=== PATIENT | female | born 1990 | race African-American/Black ===

== ENCOUNTER 2016-06-22 14:57 | Inpatient (IN) | payer OTHER ==
--- NOTE | ~2016-06-22 | CO ---
Unit #: [id number] #: [id number] Patient: EDISON WAGONER [id number] [facility]. [address] [address] [id number] I MR#: [id number] NAME: EDISON WAGONER ROOM: 559 Age: 25 Sex: F Admission Date: 06/22/2016 : 1990 Attending Physician: Moriah Borges M.D. Primary Care Physician: Adán Gar M.D. CONSULTATION REPORT REASON FOR CONSULTATION Chest pain. HISTORY OF PRESENT ILLNESS This is a 25-year-old -Iranian female who is known to Dr. Fraga, that has a history of valvular heart disease where she underwent mechanical mitral valve replacement in 2013. In 04/2016 she had a cerebrovascular accident with residual right-sided weakness. She is known to have pulmonary emboli and a history of pericardial effusion in which she underwent pericardial window. She has systemic lupus erythematosus induced congestive heart failure. In 2013 she had a cardiac catheterization according to previous records from [facility] where she was found to have angiographically normal coronary arteries. The patient presents to the emergency room with the complaint of rectal bleeding and chest pain. She said yesterday afternoon she developed an episode of hematochezia with clots and mild abdominal discomfort. She reports substernal chest pain that radiates to the left anterior chest. The patient describes a sharp intermittent, lasting for at least 2 minutes. There was no alleviating or aggravating factors. She was started on Lovenox a week ago because of subtherapeutic INR according to the patient. Her INR on admission was subtherapeutic at 0.09. She says she took no Coumadin yesterday. Troponin is negative. CT angio of the chest showed no evidence of pulmonary embolism. She demonstrates mild anemia with hemoglobin of 8.8. PAST MEDICAL HISTORY 1. 2D echocardiogram on 04/27/2016 shows an ejection fraction equal to 66%. There is mild concentric left ventricular hypertrophy. Mechanical mitral valve prosthesis with mean gradient of 5 mmHg. There was no intraatrial septum shunt with bubble study. 2. Mechanical mitral valve replacement 11/14/[address] Pop at [facility]. 3. Pericardial effusion with history of pericardial window. 4. Lupus induced congestive heart failure. 5. Cardiac catheterization in 2013 shows normal coronaries (according to records from [facility]). 6. Hypertension. 7. Pulmonary emboli. 8. Cerebrovascular accident, no residual right-sided weakness. 9. Lupus. 10. Former smoker. PAST SURGICAL HISTORY Unit #: [id number] #: [id number] Patient: EDISON WAGONER 1. Mechanical mitral valve replacement. 2. Right hip repair fracture. 3. Kidney biopsy. 4. Bone marrow biopsy. 5. Pericardial window. 6. Tonsil and adenoidectomy. SOCIAL HISTORY The patient is disabled. She had a brief period of smoking less than 1/2 pack of cigarettes but quit four years ago. FAMILY HISTORY Negative for coronary artery disease. ALLERGIES Ibuprofen, metoprolol, Benadryl, levofloxacin, and nickel. HOME MEDICATIONS 1. Celexa 20 mg daily. 2. Vitamin D 400 units daily. 3. Folic acid 1 mg t.i.d. 4. Amitriptyline 100 mg q.h.s. 5. Aspirin 81 mg p.o. daily. 6. Lipitor 40 mg q.h.s. 7. Chlorhexidine 0.5 ounces b.i.d. 8. Docusate sodium 100 mg b.i.d. 9. Gabapentin 400 mg t.i.d. 10. Plaquenil 200 mg b.i.d. 11. Hydroxyzine 25 mg b.i.d. 12. Magnesium oxide 400 mg b.i.d. 13. Mycophenolate mofetil 1,000 mg b.i.d. 14. Prednisone 10 mg daily. 15. Sodium bicarbonate 650 mg b.i.d. 16. Topiramate 100 mg b.i.d. 17. Diltiazem 30 mg q.8 hours. 18. Pepcid 40 mg daily. 19. Hydrocodone/acetaminophen 7.5/325 q.12 hours p.r.n. 20. Phenergan 25 mg b.i.d. 21. Zanaflex 4 mg q.8 hours p.r.n. 22. Coumadin 7.5 mg daily. 23. Lovenox 100 mg b.i.d. REVIEW OF SYSTEMS CONSTITUTIONAL: Negative for fever or chills. Reports no weight gain or weight loss. HEENT: No headache, hearing or visual changes. Difficulty with swallowing. Negative for dizziness. CARDIOVASCULAR: Chest pain described in the HPI. Reports occasional palpitations. No paroxysmal nocturnal dyspnea or orthopnea. No syncope or near syncope. RESPIRATORY: Negative for dyspnea, cough, or hemoptysis. GASTROINTESTINAL: Has mild abdominal pain and reports hematochezia. No constipation or melena. EXTREMITIES: Negative for lower extremity edema. PHYSICAL EXAMINATION VITAL SIGNS: Blood pressure 98/52, heart rate 97, temperature 98.7, BMI 27. Unit #: [id number] #: [id number] Patient: EDISON WAGONER GENERAL: This is a 25-year-old, young, well developed, -Iranian female who is in no acute respiratory disease. NEUROLOGIC: She is awake, alert and oriented. This is no focal weakness. NECK: Trachea is midline. No thyromegaly or lymphadenopathy. No jugular venous distention. HEART: S1 and S2. Heart sounds are normal with normal mitral valve click. No rubs. Regular rate and rhythm. LUNGS: Clear without rales, rhonchi or wheezes. ABDOMEN: Soft, nontender, bowel sounds are present. EXTREMITIES: Without leg edema. SKIN: Warm and dry. DIAGNOSTIC STUDIES LABORATORY STUDIES: Glucose 63, BUN 16, creatinine 1.2, sodium 137, potassium 3.2. Beta HCG negative. INR 0.9. ProTime 9.6. Troponin less than 0.05 and less than 0.03. White count 4.2 hemoglobin 8.8, hematocrit 27.4, platelet count is 279. IMAGING STUDIES: Chest x-ray shows no active disease. CT angio of the chest shows no pulmonary embolism. CARDIOVASCULAR STUDIES: Electrocardiogram - normal sinus rhythm with a rate of 99 BPM with QTC prolongation 490 msec. No acute ischemic changes. IMPRESSION 1. Atypical chest pain. 2. Questionable lower GI bleed. 3. Anemia, questionable etiology. 4. Subtherapeutic INR. 5. History of mechanical mitral valve replacement. 6. Hypertension. 7. Normal coronaries per cardiac catheterization in 2013. 8. History of cerebrovascular accident with right-sided weakness. PLANS 1. Cardiology was consulted for evaluation of chest pain. The patient's chest pain is atypical for ischemic heart disease. 2. Troponin is negative. She has minimal risk factors for ischemic heart disease. Coronaries were normal per cath in 2013. 3. INR is subtherapeutic. Last dose of Lovenox was 06/22/2016 at 8:00 a.m. Will start on low dose heparin. 4. The patient is okay to undergo scope at an acceptable risk. 5. Will start on IV antibiotics promotions associate for colonoscopy with ampicillin and gentamicin. 6. Plan was discussed with Dr. Cerna. Once scopes have been completed, will start the patient on Lovenox bridge of Coumadin until INR is therapeutic at 2.5 to 3.5. 7. Followup with Dr. Fraga at discharge. Thank you for allowing us to assist with this patient's care. Dictated by... Montez Lipscomb A.P.R.N. for Jaron Matos/domitila Unit #: [id number] #: [id number] Patient: EDISON WAGONER TD: 06/24/2016 08:21 JOB #: [id number] CC: [facility] Alla Fraga M.D. CONSULTATION REPORT Page 1 of 1 X Montez Lipscomb APRN X CONSULTATION REPORT
--- NOTE | ~2016-06-22 | OR ---
Unit #: [id number] #: [id number] Patient: EDISON WAGONER [id number] [address] [place], [place] [address] [id number] Kary MR#: [id number] NAME: EDISON WAGONER ROOM: 55 Date of Procedure: 06/24/2016 Admission Date: 06/22/2016 Surgeon: Maxi Cerna M.D. : 1990 Attending Physician: Moriah Borges M.D. Primary Care Physician: Adán Gar M.D. OPERATIVE REPORT PROCEDURES PERFORMED Esophagogastroduodenoscopy with biopsy and colonoscopy to cecum. INDICATIONS FOR PROCEDURE The patient presented with lower GI bleeding, also with atypical chest pain, undergoing evaluation with upper endoscopy and colonoscopy. MEDICATIONS Monitored anesthesia. POSTOPERATIVE FINDINGS 1. Mild esophagitis, small hiatal hernia. 2. Patchy gastritis. Biopsy was taken. 3. Normal duodenum and distal duodenum. 4. Colonoscopy completed to cecum. Extensive lavaging needed to be done because of poor prep. No active colitis, polyps, or masses were seen. 5. Internal hemorrhoids, most likely the cause of bleeding. PLAN Continue with current treatment. High-fiber diet and stool softeners. PPI therapy to continue. DESCRIPTION OF PROCEDURE The patient was explained of the procedure, risks, and benefits along with risks and benefits of anesthesia. She was brought to the endoscopy room. Propofol anesthesia was given. Bite block was placed. The scope was passed down the mouth and esophagus, stomach, duodenum, and distal duodenum. Findings as described. Biopsies were taken. Gently, I pulled the scope out of the patient's mouth. She tolerated it well. At this time, she was turned around and repositioned for colonoscopy. Rectal exam was done, which was normal. Colonoscope was lubricated, passed up the rectum, advanced under direct vision all the way to the cecum. Cecum was identified by ileocecal valve and appendiceal orifice. At this point, I started to pull the scope out carefully looking. No polyps, masses, or colitis were seen. Mucosa was normal and healthy. I retroflexed in the rectum, small internal hemorrhoids seen. The scope was gently pulled out. She tolerated it well. Dictated by... Mxai Cerna M.D. Unit #: [id number] #: [id number] Patient: EDISON WAGONER HÉCTOR/evelyne TD: 06/24/2016 19:44 JOB #: [id number] OPERATIVE REPORT Page 1 of 1 X Maxi Cerna MD PROCEDURE OPERATIVE NOTE
--- NOTE | ~2016-06-22 | EKG ---
PATIENT: EDISON WAGONER UNIT #: [id number] Ventricular Rate: 99 BPM Atrial Rate: 99 BPM P-R Interval: 140 ms QRS Duration: 90 ms Q-T Interval: 406 ms QTC Calculation(Bezet): 521 ms P [place]: 56 degrees Calculated R [place]: 7 degrees Calculated T [place]: 17 degrees Diagnosis Line: Normal sinus rhythm Diagnosis Line: Prolonged QT Diagnosis Line: Abnormal ECG Diagnosis Line: When compared with ECG of 22-JUN-2016 15:16, Diagnosis Line: (unconfirmed) Diagnosis Line: Nonspecific T wave abnormality now evident in Diagnosis Line: Anterior leads Diagnosis Line: Confirmed by ROGERIO MCCOLLUM MD ([id number]) on 06/23/2016 Diagnosis Line: 10:40:59 PM INTERPRETING MD: CHUN MEDINA
--- NOTE | ~2016-06-22 | DS ---
Unit #: [id number] #: [id number] Patient: EDISON WAGONER [id number] [address] [address] [id number] I MR#: [id number] NAME: EDISON WAGONER ROOM: 559 Age: 25 Sex: F Admission Date: 06/22/2016 : 1990 Discharge Date: 06/25/2016 Attending Physician: Moriah Borges M.D. Primary Care Physician: Adán Gar M.D. DISCHARGE SUMMARY DISCHARGE DIAGNOSES 1. Chest pain, status post cardiology evaluation, stable. Okay to be discharged. 2. Questionable lower gastrointestinal bleed, status post esophagogastroduodenoscopy and C-scope per GI. Stable to be discharged with stable H and H. Discharge date H and H 9.1 and 28.4. No signs of active bleeding. 3. History of valvular heart disease, was maintained on the IV heparin per cardiology recommendations. Stable to be discharged on the treatment dose of Lovenox along with bridging home dose of Coumadin. PT/INR to be checked per cardiology recommendations on June 29. Patient is to follow up with the primary field marketing lead, Dr. Fraga, as an outpatient. Again, stable from cardiology standpoint to be discharged. 4. History of chronic headache: Continue home meds. 5. History of lupus anticoagulant, on chronic anticoagulation. 6. History of pulmonary embolism, again on chronic anticoagulation. 7. History of depression and anxiety: Continue home medications. Stable. DISCHARGE MEDICATIONS 1. [place] 7.5/325, one tablet p.o. b.i.d. p.r.n. for pain. 2. Prednisone 10 mg daily. 3. Bicarb 650 mg p.o. b.i.d. 4. Mag oxide 400 mg b.i.d. 5. Lovenox 100 mcg subcu b.i.d. until INR is equal or more than 2.5. 6. Coumadin 7.5 mg p.o. daily. 7. Gabapentin 400 mg p.o. t.i.d. 8. Topamax 100 mg b.i.d. 9. Amitriptyline 100 mg at bedtime. 10. Celexa 20 mg q. a.m. 11. Phenergan 25 mg b.i.d. p.r.n. for nausea. 12. Plaquenil 200 mg p.o. b.i.d. 13. Vistaril 25 mg b.i.d. p.r.n. for anxiety. 14. Cardizem 30 mg t.i.d. 15. Colace 100 mg b.i.d. 16. Lipitor 40 mg at bedtime. 17. Chlorhexidine 0.5 b.i.d. 18. Protonix 40 mg daily. 19. CellCept 1000 mg b.i.d. 20. Aspirin 81 mg daily. 21. [place] as above. 22. Zanaflex 4 mg t.i.d. p.r.n. for muscle cramps. 23. Folic acid 1 mg p.o. t.i.d. Unit #: [id number] #: [id number] Patient: EDISON WAGONER 24. Vitamin D 400 units p.o. daily. CONSULTS DURING THIS HOSPITAL STAY 1. Dr. Suggs - Cardiology. 2. Dr. Cerna - GI. LABS AND DIAGNOSTICS AND PROCEDURES DURING THIS HOSPITAL STAY EGD and C-scope per Dr. Cerna showed mild esophagitis with small hiatal hernia, patchy gastritis. Biopsy was taken. Normal duodenum and distal duodenum. Colonoscopy completed to the cecum. Extensive lavaging needed to be done because of the poor prep. No active colitis, polyps, or masses were seen. Internal hemorrhoids, most likely the cause of bleeding. Chest x-ray on admission - no indication of active pulmonary disease. CT angio - no CT evidence of pulmonary embolus, prior median sternotomy. Small polypoid effusions. Adenopathy in the axillary regions bilaterally with the largest lymph node measuring about 2.7 cm x 1.6 cm in the right axilla. HISTORY OF PRESENT HOSPITAL STAY Please refer to H and P done by me for initial presentation on this female. ACTIVE PROBLEMS AND DIAGNOSES Chest pain, status post cardiology evaluation: Chest pain has resolved. Per cardiology, no further testing needed. Stable. Continue medical management as above in discharge meds. Questionable lower gastrointestinal bleed, status post esophagogastroduodenoscopy and C-scope: Report as above. Continue PPI per GI recommendations. Outpatient followup with GI. Axillary lymphadenopathy: Afebrile. White count 4.9. Defer further management to primary care physician. Follow up with the primary care physician in two to three days. History of valvular heart disease: Continue anticoagulation with subcu Lovenox and p.o. Coumadin. History of chronic headache: Will continue home meds. History of lupus anticoagulant: Continue home meds. History of pulmonary embolism, on anticoagulation. Depression/anxiety: Continue home medications. DISPOSITION Going home. Discharge meds as above. Follow up with primary care physician in two to three days. Outpatient followup with cardiology and GI. Unit #: [id number] #: [id number] Patient: EDISON WAGONER Dictated by... Doc Cabrera M.D. OC/df TD: 06/26/2016 06:52 JOB #: [id number] DISCHARGE SUMMARY Page 1 of 1 X Doc Cabrera MD X DISCHARGE SUMMARY
--- NOTE | ~2016-06-22 | EKG ---
PATIENT: EDISON WAGONER UNIT #: [id number] Ventricular Rate: 99 BPM Atrial Rate: 99 BPM P-R Interval: 160 ms QRS Duration: 92 ms Q-T Interval: 382 ms QTC Calculation(Bezet): 490 ms P [place]: 55 degrees Calculated R [place]: 9 degrees Calculated T [place]: 28 degrees Diagnosis Line: Normal sinus rhythm Diagnosis Line: Prolonged QT Diagnosis Line: Abnormal ECG Diagnosis Line: When compared with ECG of 01-FEB-2015 17:17, Diagnosis Line: No significant change was found Diagnosis Line: Confirmed by SHU BARRERA MD ([id number]) on 06/24/2016 Diagnosis Line: 9:47:51 AM INTERPRETING MD: HOLLY MEDINA
--- NOTE | ~2016-06-22 | CR72 ---
[facility] A Service of [facility] & [facility] RADIOLOGY TEXT RESULTS PATIENT: EDISON WAGONER LOCATION: [facility] 559-01 : [birth year] UNIT #: [id number] AGE: [address]: Moriah Borges MD SEX: F ORDER DR: [id number] [facility] [address] [place], [place] [address] [id number] I MR#: [id number] Acc #: [id number] NAME: EDISON WAGONER : 1990 SEX: F STUDY DATE/TIME: 06/22/2016 16:24 [facility]IT: [facility] ROOM: [id number] STUDY DESCRIPTION: CR Chest Single View Portable Attending Physician: Moriah Borges M.D. Ordering Physician: Rosalino Hernandez M.D. Primary Care Physician: Adán Gar M.D. MEDICAL IMAGING REPORT This report is preliminary unless electronic signature is present EXAM Portable chest x-ray, 06/22/2016 HISTORY Chest pain. Lupus. History of PE, mitral valve replacement, CABG, rectal bleeding and chest pain began today. FINDINGS AP radiograph of the chest is presented. Comparison 04/28/2016. Interval removal of left upper extremity approach PICC. Stable postoperative changes median sternotomy and cardiac valve replacement. Heart normal to upper limits of normal in size. Stable. Lung volumes moderate. No indication of acute pulmonary disease, pleural effusion or pneumothorax. No suspicious nodule. Dictated by... Herson Almaraz M.D. THIS IS AN ELECTRONICALLY VERIFIED REPORT Herson Almaraz M.D. at 06/23/2016 3:50 PM VENKAT/josette TD: 06/22/2016 20:41 JOB #: [id number] MEDICAL IMAGING REPORT Page 1 of 1 COPY
--- NOTE | ~2016-06-22 | CO ---
Unit #: [id number] #: [id number] Patient: EDISON WAGONER [id number] [facility]. [place], [place] [address] [id number] I MR#: [id number] NAME: EDISON WAGONER ROOM: 559 Age: 25 Sex: F Admission Date: 06/22/2016 : 1990 Attending Physician: Moriah Borges M.D. Primary Care Physician: Adán Gar M.D. Consultation Date: 06/23/2016 CONSULTATION REPORT REASON FOR CONSULTATION GI bleeding. HISTORY OF PRESENTING ILLNESS Ms. Wagoner is a 25-year-old female. She was admitted yesterday with complaints of blood in the stool. She has also been having chest pain. She has very complicated previous history with lupus anticoagulant on chronic anticoagulation, history of mitral valve prolapse, history of DVT, history of recent stroke. She has not had any similar GI symptoms in the past. She has not had any GI bleeding. Her last scope was over 10 to 15 years ago and she does not remember exactly the findings. She denies any heartburn. She denies any trouble swallowing or nausea or vomiting. She does have mild chronic abdominal pain, which has not changed. PAST MEDICAL HISTORY As described above, also with history of right hip surgery bone marrow mass which was biopsied, mitral valve replacement, and pericardial window surgery. MEDICATIONS At home included Lovenox and Coumadin. ALLERGIES Levaquin, Benadryl, ibuprofen, metoprolol. SOCIAL HISTORY Denies smoking or drinking. No drug abuse. FAMILY HISTORY Grandmother with colon cancer. REVIEW OF SYSTEMS Complete 10-point review of systems was done, which has been detailed above. All the other systems were negative. PHYSICAL EXAMINATION VITAL SIGNS: Stable temperature 98, pulse 93, respirations 23. HEENT: Pupils equal and reactive. Sclerae anicteric. Oral mucosa moist. NECK: No JVD. No lymphadenopathy. CHEST: Few scattered rhonchi. CARDIOVASCULAR: Mechanical valve sound. No murmurs. ABDOMEN: Soft, nontender, and nondistended. Unit #: [id number] #: [id number] Patient: EDISON WAGONER EXTREMITIES: Without clubbing, cyanosis, or edema. NEUROLOGICAL: grossly intact. Detailed examination was deferred. DIAGNOSTIC STUDIES LABORATORY RESULTS: Hemoglobin of 8.8, MCV of 737. Chemistry showed potassium of 3.2. Renal function is good. Liver functions are good. ASSESSMENT 1. The patient with lower gastrointestinal bleeding. 2. Chest pain atypical. Initial cardiac workup is negative. Cardiology consult in progress. 3. History of lupus anticoagulant on anticoagulation with Lovenox and Coumadin. 4. History of deep vein thrombosis. 5. History of mitral valve replacement. 6. History of recent stroke. 7. History of lupus. PLAN 1. After clearing with Cardiology, we will plan on doing a colonoscopy for evaluation of the lower GI bleeding as well as upper endoscopy for the atypical chest pain evaluation before we restart the anticoagulation. We will hold her Lovenox this evening for the procedures tomorrow if that is approved by Cardiology. 2. Given her multiple comorbidities she remains at higher risk than usual for the procedure and related complications particularly bleeding complications. Thank you Dr. Borges for this interesting consult. We will follow along. Dictated by... Jaron Gipson/evelyne TD: 06/23/2016 08:44 JOB #: [id number] CONSULTATION REPORT Page 1 of 1 X Maxi Cerna MD X CONSULTATION REPORT
--- NOTE | ~2016-06-22 | HP ---
Unit #: [id number] #: [id number] Patient: SUZY WAGONER [id number] [address] [address] [id number] I MR#: [id number] NAME: SUZY WAGONER ROOM: 559 Age: 25 Sex: F Admission Date: 06/22/2016 : 1990 Attending Physician: Moriah Borges M.D. Primary Care Physician: Adán Gar M.D. HISTORY AND PHYSICAL ADMISSION DIAGNOSES 1. Chest pain. 2. Lower gastrointestinal bleed. 3. History of valvular heart disease, status post mitral valve replacement on chronic anticoagulation. 4. History of pulmonary embolism. 5. History of depression and anxiety. 6. Chronic pain. 7. History of lupus anticoagulant. 8. Anemia. HISTORY OF PRESENT ILLNESS Ms. Suzy Wagoner is a 25-year-old female well known to our service secondary to prior admissions. She comes to the emergency room with the complaints of left-sided chest pain which she describes as sharp with some radiation toward the neck. No alleviating or aggravating factors. Rates it about 7 out of 10. Denies any shortness of air, denies any headache, dizziness. Denies any fever, chills. Denies any nausea, vomiting, diarrhea, or abdominal pain. The patient also complains of rectal bleeding beginning yesterday with some red blood. Denies any history of hemorrhoids. She is on chronic anticoagulation secondary to mechanical mitral valve and also positive lupus anticoagulant with the history of PE. REVIEW OF SYSTEMS Twelve-point review of systems on this patient is basically negative except as above. PAST MEDICAL HISTORY Significant for: 1. Lupus anticoagulant. 2. History of PE. 3. History of valvular heart disease, status post mitral valve replacement. 4. History of depression anxiety. 5. History of pericardial effusion. 6. History of chronic headaches. PAST SURGICAL HISTORY 1. Significant for mitral valve replacement. 2. Pericardial window. 3. Hip fracture repair. CURRENT MEDICATIONS Unit #: [id number] #: [id number] Patient: SUZY WAGONER 1. IV heparin. 2. Lipitor 40 mg daily. 3. Prednisone 10 mg daily. 4. Vitamin D 400 units daily. 5. Topamax 100 mg b.i.d. 6. Sodium bicarbonate 650 mg b.i.d. 7. CellCept 1000 mg b.i.d. 8. Magnesium oxide 400 b.i.d. 9. Plaquenil 200 mg b.i.d. 10. Celexa 20 mg daily. 11. Cardizem 30 mg t.i.d. 12. Neurontin 400 mg t.i.d. 13. Folic acid 1 mg t.i.d. 14. Phenergan 25 b.i.d. p.r.n. 15. Lortab 7.5 b.i.d. p.r.n. 16. Vistaril 25 mg b.i.d. p.r.n. 17. Amitriptyline 100 mg h.s. 18. Protonix 40 IV daily. ALLERGIES 1. Benadryl. 2. Metoprolol. 3. Ibuprofen. 4. Levaquin. SOCIAL HISTORY Denies any tobacco, alcohol, or illicit drugs. FAMILY HISTORY Unremarkable. PHYSICAL EXAMINATION VITAL SIGNS: BP 108/63, heart rate 93, respirations 16, temperature 97.9. GENERAL: The patient is 25-year-old female in no acute distress. HEENT: Head is atraumatic. Pupils equal, round, reactive to light and accommodation. Extraocular muscles are intact. Oropharynx is clear. NECK: Supple. No mass, no JVD, no bruits. LUNGS: Diminished bilaterally. HEART: S1, S2. No murmurs. ABDOMEN: Soft, nontender, nondistended. Obese. LOWER EXTREMITIES: Without any cyanosis, clubbing, or edema. NEUROLOGIC: Patient grossly intact. No focal deficits. DIAGNOSTIC STUDIES LABORATORY: PT 9.6, INR 0.9, PTT 25.4. Chemistry significant for potassium 3.2 yesterday, blood glucose 63 from yesterday as well. Hemoglobin 8.8, hematocrit 37.4. IMAGING: Chest x-ray negative. CT angio negative for PE. Showed some bilateral axillary adenopathy. ASSESSMENT AND PLAN 1. Chest pain status post cardiology evaluation, continue medical management per Cardiology. Start on ampicillin empirically for colonoscopy and gentamicin also for colonoscopy. 2. Lower gastrointestinal bleed. Monitor hemoglobin and hematocrit status post evaluation per Gastroenterology. Continue IV PPI. Unit #: [id number] #: [id number] Patient: SUZY WAGONER Colonoscopy in the morning. 3. History of valvular heart disease, status post mitral valve replacement with mechanical valve. Currently on heparin. 4. History of pulmonary embolism in the past. 5. History of depression and anxiety. 6. History of lupus anticoagulant. 7. History of chronic headaches. 8. Anemia as above. Monitor hemoglobin and hematocrit q.6 h. Transfuse for hemoglobin less than 7. 9. GI and DVT prophylaxis. Continue IV PPI and IV heparin. Dictated by Jaron Lira/domenico TD: 06/23/2016 21:44 JOB #: [id number] HISTORY AND PHYSICAL Page 1 of 1 X Doc Cabrera MD X HISTORY AND PHYSICAL
--- NOTE | ~2016-06-22 | CT16 ---
[facility] A Service of [facility] & [facility] RADIOLOGY TEXT RESULTS PATIENT: EDISON WAGONER LOCATION: [facility] 559-01 : [birth year] UNIT #: [id number] AGE: [address]: Moriah Borges MD SEX: F ORDER DR: [id number] [facility] [address] [place], [place] [address] [id number] I MR#: [id number] Acc #: [id number] NAME: EDISON WAGONER : 1990 SEX: F STUDY DATE/TIME: 06/22/2016 17:40 UNIT: [facility] ROOM: [facility] STUDY DESCRIPTION: CT Angio Chest for PE Attending Physician: Moriah Borges M.D. Ordering Physician: Rosalino Hernandez M.D. Primary Care Physician: Adán Gar M.D. MEDICAL IMAGING REPORT This report is preliminary unless electronic signature is present EXAM CT scan of the chest with intravenous contrast, 06/22/2016 HISTORY Chest pain beginning today with shortness of breath, history of previous pulmonary embolus, evaluate for pulmonary embolus. TECHNIQUE Spiral CT was performed through the chest following intravenous contrast administration using pulmonary embolus protocol. 3-D reconstructions of the chest were then performed following intravenous contrast administration. This CT exam was performed with one or more of the following radiation dose reduction techniques: Automatic exposure control, adjustment of mA and/or kV according to patient size, and iterative reconstruction. FINDINGS There is no CT evidence for pulmonary embolus. The heart is normal in size status post median sternotomy and valvular replacement. There are small bilateral pleural effusions with minimal bibasilar atelectasis. There is no significant mediastinal adenopathy but there is mild bilateral lymphadenopathy in the axillary regions bilaterally, with the largest node measuring 2.7 cm x 1.6 cm in the right axilla. Clinical correlation is recommended. IMPRESSION 1. No CT evidence for pulmonary embolus. 2. Prior median sternotomy. 3. Small bilateral pleural effusions with minimal bibasilar atelectasis. 4. Adenopathy in the axillary regions bilaterally, with the largest lymph node measuring 2.7 cm x 1.6 cm in the right axilla. Clinical correlation recommended. [facility] A Service of [facility] & [facility] RADIOLOGY TEXT RESULTS PATIENT: EDISON WAGONER LOCATION: [facility] 559-01 : [birth year] UNIT #: [id number] AGE: [address]: Moriah Borges MD SEX: F ORDER DR: Dictated by... Kyle Soriano M.D. THIS IS AN ELECTRONICALLY VERIFIED REPORT Kyle Soriano M.D. at 06/23/2016 9:03 AM KRT/josette TD: 06/22/2016 22:55 JOB #: [id number] MEDICAL IMAGING REPORT Page 1 of 1 COPY
[~2016-06-22 14:57] MED LIST: AMITRYPTYLINE PO; ASPIRIN81 MG PO; AZASAN100 M1 PO; CIPRO PO; COUMADIN10 MG PO; FOLIC ACID1 MG PO; HYDROXYZINE PAM25 MG PO; KLONOPIN0.25 MG/TA PO; LASIX20 MG PO; LOVENOX100 MG/ML INJ; MYCOPHENOLATE500 MG PO; NEURONTIN300 MG PO; PEPCID40 MG PO; PLAQUENIL200 MG PO; PREDNISONE1 MG PO; PREDNISONE10 MG PO; PYRIDIUM PO; TOPAMAX PO
[2016-06-22 16:20] LABS: BASOPHIL% 0.3 % (0-2.5); DIFF IND NO; EOSINOPHIL# 0.1 X10e3 (0-0.7); EOSINOPHIL% 2.3 % (0.0-7.0); HEMATOCRIT 31.5 % (35.0-45.0); HEMOGLOBIN 9.8 gm/dL (12.0-16.0); LYMPHOCYTE% 21.1 % (17.0-45.0); MEAN CELL VOLUME 73.7 FL (83-96); MEAN CORPUSCULAR HEMOGLOBIN 22.9 PG (28-34); MEAN CORPUSCULAR HGB CONC 31.1 g/dL (30-36); MEAN PLATELET VOLUME 8.4 FL (6.5-11.5); MONOCYTE# 0.1 X10e3 (0-1.0); MONOCYTE% 2.3 % (3.0-12.0); NEUTROPHIL# 3.3 X10e3 (1.5-7.1); PLATELET COUNT 314 X10e3 (140-420); RED BLOOD COUNT 4.27 X10e (3.90-5.30); RED CELL DISTRIBUTION WIDTH 17.1 % (11.0-15.5); WHITE BLOOD COUNT 4.5 X10e3 (4.0-10.5)
[2016-06-22 16:38] LABS: POC - CKMB <1.0 ng/mL (0.0-7.9); POC - TROPONIN <0.05 ng/mL (<=0.05)
[2016-06-22 16:41] LABS: INR 0.9; PARTIAL THROMBOPLASTIN TIME 25.4 SECONDS (23.5-31.3); PROTHROMBIN TIME (PATIENT) 9.6 SECONDS (9.6-11.5)
[2016-06-22 16:52] LABS: ALBUMIN SERUM 3.7 g/dL (3.5-5.0); ALKALINE PHOSPHATASE 62 U/L (32-92); ALT (SGPT) 14 U/L (10-40); AST (SGOT) 21 U/L (10-42); BILIRUBIN,TOTAL 0.3 mg/dL (0.2-2.0); BLOOD UREA NITROGEN 16 mg/dL (9-23); BUN/CREATININE RATIO 13.33; CALCIUM SERUM 8.5 mg/dL (8.4-10.2); CARBON DIOXIDE 20 mmol/L (22-31); CHLORIDE 108 mmol/L (100-111); CREATININE SERUM 1.2 mg/dL (0.6-1.4); GLOM FILT RATE Estimated 72.2 mL/min (>60); GLUCOSE FASTING 63 mg/dL (70-110); POTASSIUM 3.2 mmol/L (3.5-5.1); PROTEIN TOTAL SERUM 8.4 g/dL (6.0-8.3); SODIUM 137 mmol/L (135-145)
[2016-06-22 16:56] LABS: BILIRUBIN, DIRECT <0.1 mg/dL (0.0-0.2); BILIRUBIN,INDIRECT 0.2 mg/dL (0.0-0.9)
[2016-06-22] MEDS ORDERED: ATORVASTATIN CA80 MG PO (18:15)
[2016-06-22] MEDS ORDERED: CELEXA20 M1 PO (18:16)
[2016-06-22] MEDS ORDERED: ASPIRIN81 M2 PO (18:16)
[2016-06-22] MEDS ORDERED: TIZANIDINE HCL2 M1 PO (18:18)
[2016-06-22] MEDS ORDERED: GABAPENTIN800 MG PO (18:18)
[2016-06-22] MEDS ORDERED: SOD BICARBONATE PO (18:19)
[2016-06-22] MEDS ORDERED: PLAQUENIL200 MG PO ×2 (18:20→23:43)
[2016-06-22] MEDS ORDERED: VITAMIN D400 UNI2 PO (18:35)
[2016-06-22] MEDS ORDERED: MYCOPHENOLATE500 MG PO (18:35)
[2016-06-22] MEDS ORDERED: MAGOX 400400 MG PO (18:36)
[2016-06-22] MEDS ORDERED: CARDIZEM30 M2 PO (18:36)
[2016-06-22] MEDS ORDERED: FOLIC ACID1 MG PO (18:37)
[2016-06-22] MEDS ORDERED: HYDROXYZINE HCL25 M1 PO ×2 (18:38→23:43)
[2016-06-22] MEDS ORDERED: PEPCID40 MG PO ×2 (18:38→23:48)
[2016-06-22] MEDS ORDERED: COUMADIN PO (18:39)
[2016-06-22] MEDS ORDERED: TOPIRAMATE100 MG PO ×2 (18:40→23:46)
[2016-06-22] MEDS ORDERED: AMITRIPTYLINE100 MG PO (18:40)
[2016-06-22] MEDS ORDERED: PREDNISONE10 MG PO ×2 (18:41→23:45)
[2016-06-22] MEDS ORDERED: LIPITOR40 MG PO (23:40)
[2016-06-22] MEDS ORDERED: ASPIRIN EC81 M1 PO (23:40)
[2016-06-22] MEDS ORDERED: CHLORHEXIDINE FL1 ML PO (23:41)
[2016-06-22] MEDS ORDERED: DOK100 M1 PO (23:42)
[2016-06-22] MEDS ORDERED: GABAPENTIN400 M2 PO (23:42)
[2016-06-22] MEDS ORDERED: HYDROXYZINE HCL25 M1 (23:43)
[2016-06-22] MEDS ORDERED: MAG-OX 400400 MG PO (23:44)
[2016-06-22] MEDS ORDERED: MYCOPHENOLATE500 M1 PO (23:45)
[2016-06-22] MEDS ORDERED: ANTACID650 MG PO (23:46)
[2016-06-22] MEDS ORDERED: CARDIZEM30 MG PO (23:48)
[2016-06-22 23:50] LABS: CK TOTAL 42 IU/L (26-140)
[2016-06-22] MEDS ORDERED: NORCO 7.5-3251 EACH PO (23:50)
[2016-06-22] MEDS ORDERED: PHENERGAN25 M1 PO (23:51)
[2016-06-22] MEDS ORDERED: ZANAFLEX4 M1 PO (23:52)
[2016-06-23] MEDS ORDERED: COUMADIN7.5 MG PO (01:06)
[2016-06-23] MEDS ORDERED: LOVENOX100 MG/1 M SUBQ (01:07)
[2016-06-23 05:26] LABS: BASOPHIL% 0.2 % (0-2.5); EOSINOPHIL# 0.1 X10e3 (0-0.7); EOSINOPHIL% 1.8 % (0.0-7.0); HEMATOCRIT 27.4 % (35.0-45.0); HEMOGLOBIN 8.8 gm/dL (12.0-16.0); LYMPHOCYTE# 0.7 X10e3 (1.0-3.5); LYMPHOCYTE% 17.3 % (17.0-45.0); MEAN CELL VOLUME 72.8 FL (83-96); MEAN CORPUSCULAR HEMOGLOBIN 23.3 PG (28-34); MEAN CORPUSCULAR HGB CONC 32.1 g/dL (30-36); MEAN PLATELET VOLUME 8.5 FL (6.5-11.5); MONOCYTE# 0.1 X10e3 (0-1.0); MONOCYTE% 2.9 % (3.0-12.0); NEUTROPHIL# 3.3 X10e3 (1.5-7.1); NEUTROPHIL% 77.8 % (40-75); PLATELET COUNT 279 X10e3 (140-420); RED BLOOD COUNT 3.76 X10e (3.90-5.30); RED CELL DISTRIBUTION WIDTH 16.7 % (11.0-15.5); WHITE BLOOD COUNT 4.2 X10e3 (4.0-10.5)
[2016-06-23 05:29] LABS: DIFF IND NO
[2016-06-23 10:40] LABS: FOLATE (FOLIC ACID) >23.6 ng/mL (>5.8)
[2016-06-23 18:57] LABS: HEMATOCRIT 32.9 % (35.0-45.0); HEMOGLOBIN 9.7 gm/dL (12.0-16.0)
[2016-06-23 23:38] LABS: HEMATOCRIT 32.4 % (35.0-45.0)
[2016-06-24 07:59] LABS: HEMATOCRIT 28.4 % (35.0-45.0); MEAN CELL VOLUME 72.6 FL (83-96); MEAN CORPUSCULAR HEMOGLOBIN 22.9 PG (28-34); MEAN CORPUSCULAR HGB CONC 31.5 g/dL (30-36); MEAN PLATELET VOLUME 8.7 FL (6.5-11.5); RED BLOOD COUNT 3.92 X10e (3.90-5.30); RED CELL DISTRIBUTION WIDTH 16.8 % (11.0-15.5); WHITE BLOOD COUNT 2.6 X10e3 (4.0-10.5)
[2016-06-24 08:11] LABS: INR 0.9; PROTHROMBIN TIME (PATIENT) 9.8 SECONDS (9.6-11.5)
[2016-06-24 08:39] LABS: ALBUMIN SERUM 3.3 g/dL (3.5-5.0); BILIRUBIN,TOTAL 0.3 mg/dL (0.2-2.0); BUN/CREATININE RATIO 7.27; CALCIUM SERUM 8.6 mg/dL (8.4-10.2); CREATININE SERUM 1.1 mg/dL (0.6-1.4); GLOM FILT RATE Estimated 80.3 mL/min (>60); PROTEIN TOTAL SERUM 7.1 g/dL (6.0-8.3)
[2016-06-24 19:20] LABS: INR 0.9; PARTIAL THROMBOPLASTIN TIME 25.4 SECONDS (23.5-31.3); PROTHROMBIN TIME (PATIENT) 9.6 SECONDS (9.6-11.5)
[2016-06-25 03:44] LABS: HEMATOCRIT 28.4 % (35.0-45.0); HEMOGLOBIN 9.1 gm/dL (12.0-16.0); MEAN CELL VOLUME 72.6 FL (83-96); MEAN CORPUSCULAR HEMOGLOBIN 23.2 PG (28-34); MEAN PLATELET VOLUME 8.3 FL (6.5-11.5); RED BLOOD COUNT 3.91 X10e (3.90-5.30); RED CELL DISTRIBUTION WIDTH 16.9 % (11.0-15.5)
[2016-06-25 03:48] LABS: WHITE BLOOD COUNT 4.9 X10e3 (4.0-10.5)
[2016-06-25 04:07] LABS: ALBUMIN SERUM 3.2 g/dL (3.5-5.0); BILIRUBIN,TOTAL 0.4 mg/dL (0.2-2.0); CALCIUM SERUM 8.3 mg/dL (8.4-10.2); CREATININE SERUM 1.2 mg/dL (0.6-1.4); GLOM FILT RATE Estimated 72.2 mL/min (>60); POTASSIUM 4.7 mmol/L (3.5-5.1); PROTEIN TOTAL SERUM 7.1 g/dL (6.0-8.3)
[2016-06-25 09:11] LABS: INR 0.9; PARTIAL THROMBOPLASTIN TIME 33.6 SECONDS (23.5-31.3); PROTHROMBIN TIME (PATIENT) 9.6 SECONDS (9.6-11.5)
[2016-06-25] MEDS ORDERED: PROTONIX PO (20:55)
== END 2016-06-25 21:49 | disposition home or self-care (01) | DRG 394 ==
LOC: CED 14:57 → C5B 18:30 → CEDOF 18:30 → C5B 19:10 → CED 19:10 → CEDOF 19:10 → C5B 21:29
PROVIDERS: Emergency Medicine; Hospitalist; Internal Medicine; Internal Medicine Cardiovascular Disease; Physician Assistant Medical
PROC: B32TYZZ Computerized Tomography (CT Scan) of Left Pulmonary Artery using Other Contrast (ICD-10-PCS; principal; 2016-06-22)
PROC: B32SYZZ Computerized Tomography (CT Scan) of Right Pulmonary Artery using Other Contrast (ICD-10-PCS; 2016-06-22)
PROC: 0DB68ZX Excision of Stomach, Via Natural or Artificial Opening Endoscopic, Diagnostic (ICD-10-PCS; 2016-06-24 13:45)
PROC: 0DJD8ZZ Inspection of Lower Intestinal Tract, Via Natural or Artificial Opening Endoscopic (ICD-10-PCS; 2016-06-24 13:45)
DX: K64.8 Other hemorrhoids (principal); D68.62 Lupus anticoagulant syndrome; I69.951 Hemiplegia and hemiparesis following unspecified cerebrovascular disease affecting right dominant side; R07.9 Chest pain, unspecified; Z95.2 Presence of prosthetic heart valve; Z79.01 Long term (current) use of anticoagulants; Z86.711 Personal history of pulmonary embolism; F32.9 Major depressive disorder, single episode, unspecified; F41.9 Anxiety disorder, unspecified; D64.9 Anemia, unspecified; G89.29 Other chronic pain; Z88.1 Allergy status to other antibiotic agents; Z87.891 Personal history of nicotine dependence; L93.0 Discoid lupus erythematosus; K20.9 Esophagitis, unspecified; K44.9 Diaphragmatic hernia without obstruction or gangrene; K29.70 Gastritis, unspecified, without bleeding
CPT/HCPCS: 36415; 71010; 71275; 80048; 80053; 80076; 82550; 82553; 82607; 82728; 82746; 83540; 84484; 84703; 85014; 85018; 85025; 85027; 85610; 85730; 86850; 86900; 86901; 88305; 88312; 93005; 99285; C9113; J0290; J1580; J1644; J2250; J2270; J2405; J7517; Q9967

== ENCOUNTER 2016-07-12 20:48 | Emergency (ER) | payer OTHER ==
--- NOTE | ~2016-07-12 | CT16 ---
[facility] A Service [facility] RADIOLOGY TEXT RESULTS PATIENT: EDISON WAGONER LOCATION: [facility] : [birth year] UNIT #: [id number] AGE: [address]: Sol Melton MD SEX: F ORDER DR: [id number] [facility] [address] [place], [place] [address] [id number] E MR#: [id number] Acc #: [id number] NAME: EDISON WAGONER : 1990 SEX: F STUDY DATE/TIME: 07/13/2016 0:54 UNIT: [facility] ROOM: STUDY DESCRIPTION: CT Angio Chest for PE Attending Physician: Sol Melton M.D. Ordering Physician: Sol Melton M.D. Primary Care Physician: Adán Gar M.D. MEDICAL IMAGING REPORT This report is preliminary unless electronic signature is present EXAM CTA chest PE protocol INDICATIONS Midsternal chest pain since yesterday. PROCEDURE Contrast-enhanced CTA of the chest attention on opacification of the pulmonary arteries. Coronal 3-D MIP sagittal reformatted images reconstructed and submitted. The CT exam was performed with one or more of the following radiation dose reduction techniques: automatic exposure control, adjustment of mA and/or kV according to patient size, and iterative reconstruction. COMPARISON: 06/22/2016 FINDINGS No evidence for pulmonary embolus. No evidence for acute aortic injury. No adenopathy. Stable pleural-based opacity in the lateral left lower lobe. There is a new 1.3 cm nodule in the left upper lobe. Cardiomegaly. No aggressive appearing bone lesion. No acute findings in the included upper abdomen. IMPRESSION 1. No evidence for pulmonary embolus. 2. There is a new 1.3 cm nodule in the left upper lobe since the 06/22/2016 study suggesting that this is an infectious or inflammatory nodule. Recommend attention on short-interval followup. 3. Stable pleural thickening or pleural-based opacity posterolateral left lung base. 4. Cardiomegaly. [facility] A Service of [facility] & [facility] RADIOLOGY TEXT RESULTS PATIENT: EDISON WAGONER LOCATION: [facility] : [birth year] UNIT #: [id number] AGE: [address]: Sol Melton MD SEX: F ORDER DR: Dictated by... Butch Durán M.D. THIS IS AN ELECTRONICALLY VERIFIED REPORT Butch Durán M.D. at 07/14/2016 9:56 PM EED/becca TD: 07/13/2016 10:31 JOB #: [id number] MEDICAL IMAGING REPORT Page 1 of 1 COPY
--- NOTE | ~2016-07-12 | EKG ---
PATIENT: EDISON AWGONER UNIT #: [id number] Ventricular Rate: 95 BPM Atrial Rate: 95 BPM P-R Interval: 144 ms QRS Duration: 90 ms Q-T Interval: 372 ms QTC Calculation(Bezet): 467 ms P [place]: 72 degrees Calculated R [place]: 32 degrees Calculated T [place]: 45 degrees Diagnosis Line: Suspect unspecified pacemaker failure Diagnosis Line: Normal sinus rhythm Diagnosis Line: Normal ECG Diagnosis Line: No previous ECGs available Diagnosis Line: Confirmed by NOAH TERRELL MD ([id number]) on Diagnosis Line: 07/14/2016 3:17:18 PM INTERPRETING MD: XANDER MEDINA
--- NOTE | ~2016-07-12 | CR72 ---
[facility] A Service of [facility] & [facility] RADIOLOGY TEXT RESULTS PATIENT: EDISON WAGONER LOCATION: [facility] : [birth year] UNIT #: [id number] AGE: [address]: Sol Melton MD SEX: F ORDER DR: [id number] [facility] [address] [place], [place] [address] [id number] E MR#: [id number] Acc #: [id number] NAME: EDISON WAGONER : 1990 SEX: F STUDY DATE/TIME: 07/12/2016 22:17 UNIT: [facility] ROOM: STUDY DESCRIPTION: CR Chest Single View Portable Attending Physician: Sol Melton M.D. Ordering Physician: Sol Melton M.D. Primary Care Physician: Adán Gar M.D. MEDICAL IMAGING REPORT This report is preliminary unless electronic signature is present EXAM Portable chest 07/12/2016 HISTORY Chest pain beginning this morning. Benign essential hypertension. FINDINGS There is mild cardiac enlargement status post median sternotomy and valvular replacement. The lungs are clear. There are no pleural effusions. IMPRESSION Mild cardiac enlargement. No active pulmonary disease. Dictated by... Kyle Soriano M.D. THIS IS AN ELECTRONICALLY VERIFIED REPORT Kyle Soriano M.D. at 07/13/2016 2:14 PM JAMES/becca TD: 07/13/2016 08:58 JOB #: [id number] MEDICAL IMAGING REPORT Page 1 of 1 COPY
[~2016-07-12 20:48] MED LIST changes: +AMITRIPTYLINE100 MG PO; +ANTACID650 MG PO; +ASPIRIN EC81 M1 PO; +ASPIRIN81 M2 PO; +ATORVASTATIN CA80 MG PO; +CARDIZEM30 M2 PO; +CARDIZEM30 MG PO; +CELEXA20 M1 PO; +CHLORHEXIDINE FL1 ML PO; +COUMADIN PO; +COUMADIN7.5 MG PO; +DOK100 M1 PO; +GABAPENTIN400 M2 PO; +GABAPENTIN800 MG PO; +HYDROXYZINE HCL25 M1; +HYDROXYZINE HCL25 M1 PO; +LIPITOR40 MG PO; +LOVENOX100 MG/1 M SUBQ; +MAG-OX 400400 MG PO; +MAGOX 400400 MG PO; +MYCOPHENOLATE500 M1 PO; +NORCO 7.5-3251 EACH PO; +PHENERGAN25 M1 PO; +PROTONIX PO; +SOD BICARBONATE PO; +TIZANIDINE HCL2 M1 PO; +TOPIRAMATE100 MG PO; +VITAMIN D400 UNI2 PO; +ZANAFLEX4 M1 PO
[2016-07-12 23:35] LABS: URINE SOURCE CLEAN CATCH
[2016-07-12 23:40] LABS: BASOPHIL% 0.2 % (0-2.5); DIFF IND NO; EOSINOPHIL% 0.6 % (0.0-7.0); HEMOGLOBIN 8.7 gm/dL (12.0-16.0); LYMPHOCYTE# 0.5 X10e3 (1.0-3.5); LYMPHOCYTE% 7.6 % (17.0-45.0); MEAN CELL VOLUME 73.2 FL (83-96); MEAN CORPUSCULAR HEMOGLOBIN 22.9 PG (28-34); MEAN CORPUSCULAR HGB CONC 31.2 g/dL (30-36); MEAN PLATELET VOLUME 8.9 FL (6.5-11.5); MONOCYTE# 0.1 X10e3 (0-1.0); MONOCYTE% 1.4 % (3.0-12.0); NEUTROPHIL# 6.3 X10e3 (1.5-7.1); NEUTROPHIL% 90.2 % (40-75); PLATELET COUNT 316 X10e3 (140-420); RED BLOOD COUNT 3.82 X10e (3.90-5.30); RED CELL DISTRIBUTION WIDTH 16.8 % (11.0-15.5)
[2016-07-12 23:41] LABS: URINE APPEARANCE CLEAR; URINE BILIRUBIN NEG (NEG); URINE BLOOD NEG (NEG); URINE COLOR YELLOW; URINE GLUCOSE NEG (NEG); URINE KETONE NEG (NEG); URINE LEUKOCYTE ESTERASE 2+ (NEG); URINE NITRATE NEG (NEG); URINE PROTEIN NEG (NEG); URINE SPECIFIC GRAVITY 1.013 (1.003-1.035)
[2016-07-12 23:45] LABS: POC - CKMB <1.0 ng/mL (0.0-7.9); POC - TROPONIN <0.05 ng/mL (<=0.05)
[2016-07-12 23:47] LABS: CULTURE INDICATED? YES; U HYALINE CASTS AUWI 0-2 /[LPF]; URBCS1 AUWI 0-2 /[HPF] (0-2); URINE BACTERIA AUWI NEG (NEGATIVE); URINE SQUAMOUS EPITHELIAL CELL OCC /[HPF]
[2016-07-12 23:53] LABS: INR 0.9; PROTHROMBIN TIME (PATIENT) 9.8 SECONDS (9.6-11.5)
[2016-07-12 23:54] LABS: PARTIAL THROMBOPLASTIN TIME 25.5 SECONDS (23.5-31.3)
[2016-07-13 00:01] LABS: ALBUMIN SERUM 3.4 g/dL (3.5-5.0); ALKALINE PHOSPHATASE 52 U/L (32-92); ALT (SGPT) 8 U/L (10-40); AST (SGOT) 15 U/L (10-42); BILIRUBIN,TOTAL 0.2 mg/dL (0.2-2.0); BLOOD UREA NITROGEN 12 mg/dL (9-23); CALCIUM SERUM 8.2 mg/dL (8.4-10.2); CARBON DIOXIDE 20 mmol/L (22-31); CHLORIDE 109 mmol/L (100-111); CREATININE SERUM 1.5 mg/dL (0.6-1.4); GLOM FILT RATE Estimated 55.2 mL/min (>60); GLUCOSE FASTING 84 mg/dL (70-110); POTASSIUM 4.3 mmol/L (3.5-5.1); PROTEIN TOTAL SERUM 7.8 g/dL (6.0-8.3); SODIUM 135 mmol/L (135-145)
[2016-07-13 00:07] LABS: BILIRUBIN, DIRECT <0.1 mg/dL (0.0-0.2); BILIRUBIN,INDIRECT 0.1 mg/dL (0.0-0.9)
[2016-07-13 00:20] LABS: INFLUENZA A NEG (NEG); INFLUENZA B NEG (NEG)
== END 2016-07-13 02:05 | disposition home or self-care (01) ==
LOC: CED 20:48
PROVIDERS: Emergency Medicine
DX: R07.89 Other chest pain (principal); S50.02XA Contusion of left elbow, initial encounter; R05 Cough; R09.81 Nasal congestion; F41.8 Other specified anxiety disorders; D64.9 Anemia, unspecified; Z86.711 Personal history of pulmonary embolism; Z98.890 Other specified postprocedural states; X58.XXXA Exposure to other specified factors, initial encounter
CPT/HCPCS: 36415; 71010; 71275; 80048; 80076; 81003; 82553; 83605; 83880; 84484; 85025; 85610; 85730; 87040; 87086; 87804; 93005; 96361; 96374; 99284; J1885; Q9967